=== PATIENT | female | born 1990 | race Caucasian/White ===

== ENCOUNTER 2017-09-27 10:58 | Emergency (ER) | payer MEDICAID ==
[2017-09-27 11:14] VITALS: BP 122/76
--- NOTE | 2017-09-27 11:27 | ED Physician Documentation ---
General Adult - HISTORIAN Historian: patient - HPI Stated Complaint: L lower jaw pain Chief Complaint: General Adult Onset: days ago Timing: still present Severity: moderate Further Comments: yes (Pt is a 27 yo female with dental pain in her L lower jaw. Pt has had difficulty sleeping. Pt has had pain for several weeks, but it has been worse in the past 2 days.) - ROS CONST: no problems EYES/ENT: other (dental pain) CVS/RESP: none GI/: none MS/SKIN/LYMPH: none - PAST HX Past History: asthma Surgeries/Procedures: , other (ortho surgery) Allergies/Adverse Reactions: Allergies Allergy/AdvReac Type Severity Reaction Status Date / Time amoxicillin Allergy Verified 09/27/17 11:14 Home Medications: Ambulatory Orders Medication Instructions Recorded NK [NK] 09/27/17 - SOCIAL HX Smoking History: quit less than 1 year - FAMILY HX Family History: No - VITAL SIGNS Vital Signs: Vital Signs Temp Pulse Resp BP Pulse Ox 72 17 122/76 99 09/27/17 11:10 09/27/17 11:10 09/27/17 11:10 09/27/17 11:10 - REVIEWED ASSESSMENTS Nursing Assessment Reviewed: Yes Vitals Reviewed: Yes Progress - Progress Progress: Rx Keflex 500 mg. Take one every 8 hrs for 10 days. Rx [place] (5/325). Take one or two every 4 to 6 hrs as needed for moderate to severe pain. f/u dentist (see handout of local dentists.) General Adult Physical Exam - PHYSICAL EXAM GENERAL APPEARANCE: moderate distress EENT: other (dental caries; tenderness L lower molar) RESPIRATORY: no resp distress CVS: reg rate & rhythm, heart sounds normal BACK: normal inspection SKIN: warm/dry, normal color EXTREMITIES: non-tender, normal range of motion, no evidence of injury NEURO: oriented X3, motor nml, sensation nml Discharge Clincal Impression: Pain, dental Condition: Good Disposition: 01 HOME, SELF-CARE Decision to Admit: NO Decision Time: 11:31
== END 2017-09-27 11:35 | disposition home or self-care (01) ==
LOC: ED 10:58
DX: K02.9 Dental caries, unspecified (principal)

== ENCOUNTER 2017-11-19 22:09 | Emergency (ER) | payer MEDICAID, OTHER ==
[2017-11-19] MEDS ORDERED: ONDANSETRON HCL 4 MG TAB.RAPDIS PO ONE (22:37)
[2017-11-19] MEDS ORDERED: 0.9 % SODIUM CHLORIDE 1,000 ML IV ONE (22:38)
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
[2017-11-19] MEDS ORDERED: KETOROLAC TROMETHAMINE 30 MG/1ML VIAL IVP ONE (23:23)
[2017-11-19 23:49] LABS: BASOPHILS % 0.5 (0.0-1.5); EOSINOPHILS % 4.3 % (0.0-6.8); MEAN CORPUSCULAR HEMOGLOBIN 30.3 pg (28.0-34.0); MEAN CORPUSCULAR VOLUME 89.8 fl (80.0-100.0); MONOCYTES % 3.9 % (0.0-11.0); NEUTROPHILS # 4.4 # k/uL (1.4-7.7)
[2017-11-20 00:08] LABS: eGFR (African) > 60; eGFR (Non-African) > 60
[2017-11-20] MEDS ORDERED: SULFAMETHOXAZOLE/TRIMETHOPRIM 1 EACH TABLET PO ONE (00:22)
[2017-11-20 02:38] VITALS: BP 128/82
[2017-11-20 09:39] LABS: APPEARANCE,URINE CLEAR (CLEAR); COLOR,URINE YELLOW (YELLOW); OCCULT BLOOD,URINE 2+ (NEGATIVE); PH URINE 5.5 (5.0 - 8.0); UROBILINOGEN URINE 0.2 Eu (0.2-1.0)
== END 2017-11-20 01:05 | disposition home or self-care (01) ==
LOC: ED 22:09
DX: N30.01 Acute cystitis with hematuria (principal)
CPT/HCPCS: 80053; 81002; 84703; 85025; 87086; 96365; 96375; J1885; A9270; J7030; S1016

== ENCOUNTER 2017-12-06 11:30 | Emergency (ER) | payer MEDICAID, OTHER ==
--- NOTE | 2017-12-06 12:22 | ED Physician Documentation ---
General Adult - HISTORIAN Historian: patient - HPI Stated Complaint: n/v/d Chief Complaint: General Adult Additional Information: onset 5 days ago sinus headache facial discomfort n/e/d dehydration cough prod sl colored mucoid. several people at work w/similar Timing: worse Severity: moderate - ROS CONST: recent illness, chills EYES/ENT: sore throat, nasal drainage, nasal congestion. denies: problems with vision CVS/RESP: cough. denies: shortness of breath GI/: abdominal pain (mild), vomiting, nausea, diarrhea MS/SKIN/LYMPH: other (headache facial discomnfort and ache all over) NEURO/PSYCH: headache - PAST HX Past History: asthma Surgeries/Procedures: Allergies/Adverse Reactions: Allergies Allergy/AdvReac Type Severity Reaction Status Date / Time amoxicillin Allergy Verified 12/06/17 12:13 Home Medications: Ambulatory Orders Medication Instructions Recorded Azithromycin 500 mg PO DAILY 5 Days #5 tablet 12/06/17 Ondansetron [Zofran Odt] 4 mg PO Q4H PRN #8 tab.rapdis 12/06/17 - SOCIAL HX Smoking History: non-smoker Alcohol Use: rarely Drug Use: none - FAMILY HX Family History: No - VITAL SIGNS Vital Signs: Vital Signs Temp Pulse Resp BP Pulse Ox 96.7 F L 72 16 150/96 98 12/06/17 11:45 12/06/17 11:45 12/06/17 11:45 12/06/17 11:45 12/06/17 11:45 - REVIEWED ASSESSMENTS Nursing Assessment Reviewed: Yes Vitals Reviewed: Yes ED Results Lab/Radiology - Orders Orders: ED Orders Category Date Time Status Place IV Lock 1T Care 12/06/17 12:17 Ordered Azithromycin [Zithromax] Med 12/06/17 12:18 Once 500 mg PO NOW ONE NORMAL SALINE @ 1000 MLS/HR ( 1000ml BOLUS) Med 12/06/17 12:17 Ordered 0.9 % Sodium Chloride [Normal Saline] 1,000 ml IV Q1H Ondansetron HCl/Pf [Zofran 4 mg/2 ml] Med 12/06/17 12:17 Once 4 mg IVP NOW ONE General Adult Physical Exam - PHYSICAL EXAM GENERAL APPEARANCE: moderate distress EENT: eye inspection normal, DOLORES, no nystagmus, TM's nml, pharyngeal erythema ( mild), other (percussion all sinuses mod positive especially mastoid). No: no signs of dehydration, scleral icterus, pale conjunctivae, EOM palsy NECK: normal inspection, supple RESPIRATORY: no resp distress, breath sounds normal CVS: reg rate & rhythm, heart sounds normal ABDOMEN: soft. No: non-tender (slight genl tenderness) SKIN: warm/dry, normal color. No: cyanosis, diaphoresis, jaundice, mottled EXTREMITIES: non-tender, normal range of motion, no evidence of injury (multi tatoos) NEURO: oriented X3, motor nml, sensation nml, mood/affect nml, depressed mood/ affect. No: facial droop, sensory/motor deficit Discharge Clincal Impression: sinusitis, viral gastritis - n/e/d Prescriptions: Azithromycin 500 mg PO DAILY 5 Days #5 tablet Ondansetron [Zofran Odt] 4 mg PO Q4H PRN #8 tab.rapdis PRN Reason: Nausea / Vomiting Referrals: Primary Doctor,No [Primary Care Provider] - 2 Days Comments: home meds ORT of 2/3 gatoraid 1/3 water Condition: Good Disposition: 01 HOME, SELF-CARE Decision to Admit: NO Decision Time: 14:18
[2017-12-06] MEDS: AZITHROMYCIN 250 MG TABLET PO ONE (12:35)
[2017-12-06] MEDS: 0.9 % SODIUM CHLORIDE 1,000 ML IV ONE (12:35)
[2017-12-06] MEDS: ONDANSETRON HCL/PF 4 MG/ 2ML VIAL IVP ONE (12:35)
[2017-12-06 12:55] VITALS: BP 150/96
== END 2017-12-06 14:16 | disposition home or self-care (01) ==
LOC: ED 11:30
DX: J32.8 Other chronic sinusitis (principal); K52.9 Noninfective gastroenteritis and colitis, unspecified
CPT/HCPCS: J2405; J7030; 96365; 96375; S1016

== ENCOUNTER 2017-12-10 16:48 | Emergency (ER) | payer MEDICAID, OTHER ==
[2017-12-10 16:59] VITALS: BP 125/83
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
== END 2017-12-10 17:25 | disposition home or self-care (01) ==
LOC: ED 16:48
DX: L30.9 Dermatitis, unspecified (principal)

== ENCOUNTER 2017-12-16 17:54 | Emergency (ER) | payer MEDICAID, OTHER ==
[2017-12-16 18:15] VITALS: BP 138/98
[2017-12-16] MEDS ORDERED: KETOROLAC TROMETHAMINE 60 MG/2 ML VIAL IM ONE (18:33)
[2017-12-16] MEDS ORDERED: CYCLOBENZAPRINE HCL 5 MG TABLET PO ONE (18:33)
--- NOTE | 2017-12-16 18:39 | ED Physician Documentation ---
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 Points to lumbar paraspinous areas, pain worse R>L. At times, feels like the muscles in her back twitch and R leg tingles or becomes numb. Took 200 mg ibuprofen this am at work which did not help. Has appled cold to the area once. Denies loss bowel or bladder control, paralysis, weakness. No other modifying factors or associated signs. HX back pain, but not for months. No other modifying factors or associated signs. - ROS CONST: no problems NEURO/PSYCH: denies: difficulty walking - PAST HX Past History: other Allergies/Adverse Reactions: Allergies Allergy/AdvReac Type Severity Reaction Status Date / Time amoxicillin Allergy Verified 12/16/17 18:07 Home Medications: Ambulatory Orders Medication Instructions Recorded NK [NK] 12/16/17 - SOCIAL HX Smoking History: non-smoker - FAMILY HX Family History: No - VITAL SIGNS Vital Signs: Vital Signs Temp Pulse Resp BP Pulse Ox 98.4 F 73 18 138/98 98 12/16/17 18:08 12/16/17 18:08 12/16/17 18:08 12/16/17 18:08 12/16/17 18:08 - REVIEWED ASSESSMENTS Nursing Assessment Reviewed: Yes Vitals Reviewed: Yes ED Results Lab/Radiology - Orders Orders: ED Orders Category Date Time Status Cyclobenzaprine HCl [Flexeril] Med 12/16/17 18:33 Once 10 mg PO NOW ONE Ketorolac Tromethamine [Toradol] Med 12/16/17 18:33 Once 60 mg IM NOW ONE General Adult Physical Exam - PHYSICAL EXAM GENERAL APPEARANCE: mild distress EENT: eye inspection normal, ENT inspection normal NECK: normal inspection, supple RESPIRATORY: no resp distress, breath sounds normal CVS: reg rate & rhythm, heart sounds normal BACK: normal inspection, no CVA tenderness, other (lumbar paraspinal muscle spasm R>L, tender to palpation R>L) SKIN: warm/dry, normal color EXTREMITIES: normal range of motion, no evidence of injury, other (SLR positive on right at 80 degrees; negative on left ) NEURO: CN's nml as tested, motor nml, sensation nml, other (reflexes 2+) Discharge Clincal Impression: Lumbar strain Qualifiers: Encounter type: initial encounter Qualified Code(s): S39.012A - Strain of muscle, fascia and tendon of lower back, initial encounter Referrals: Primary Doctor,No [Primary Care Provider] - 2 Days Additional Instructions: Ibuprofen 600 mg with food, every 8 hours for a week. You could also take 1000 mg acetaminophen every 8 hours if needed for discomfort. Ice to the sore muscles for 30 minutes of each hour you are awake. Condition: Good Disposition: 01 HOME, SELF-CARE Decision to Admit: NO Decision Time: 18:50
== END 2017-12-16 19:15 | disposition home or self-care (01) ==
LOC: ED 17:54
DX: S39.012A Strain of muscle, fascia and tendon of lower back, initial encounter (principal); X50.0XXA Overexertion from strenuous movement or load, initial encounter; Y92.9 Unspecified place or not applicable; Y93.F2 Activity, caregiving, lifting; Y99.9 Unspecified external cause status
CPT/HCPCS: 96372; J1885

== ENCOUNTER 2017-12-31 00:42 | Emergency (ER) | payer MEDICAID ==
--- NOTE | 2017-12-31 00:57 | ED Physician Documentation ---
General Adult - HISTORIAN Historian: patient - HPI Stated Complaint: history of UTI, burning with urination Chief Complaint: Female Urogenital Problems Onset: days ago (2) Timing: still present Severity: mild Further Comments: yes (She reports she has frequent UTI's. She started with burning she reports she gets sick very easily she does not want to wait to see PCP. NO fever. She has burning and urgency. NO OTC meds tried. No vaginal discharge. Mild lower pelvic pain) Last known Well Code/Unknown Code: Unknown - ROS CONST: denies: fever GI/: abdominal pain, problems urinating. denies: vomiting, nausea, diarrhea MS/SKIN/LYMPH: denies: rash NEURO/PSYCH: denies: headache, dizziness - PAST HX Past History: other (chronic back pain ) Immunizations: UTD Allergies/Adverse Reactions: Allergies Allergy/AdvReac Type Severity Reaction Status Date / Time amoxicillin Allergy Intermediate Rash Verified 12/31/17 01:12 Home Medications: Ambulatory Orders Medication Instructions Recorded NK 12/31/17 - SOCIAL HX Smoking History: non-smoker Alcohol Use: none Drug Use: none - FAMILY HX Family History: No - VITAL SIGNS Vital Signs: Vital Signs Temp Pulse Resp BP Pulse Ox 138/98 12/16/17 18:08 - REVIEWED ASSESSMENTS Nursing Assessment Reviewed: Yes Vitals Reviewed: Yes General Adult Physical Exam - PHYSICAL EXAM GENERAL APPEARANCE: no distress EENT: eye inspection normal NECK: normal inspection RESPIRATORY: no resp distress, chest non-tender, breath sounds normal CVS: reg rate & rhythm, heart sounds normal, equal pulses ABDOMEN: soft, normal bowel sounds, no distension, non-tender, other (mild bladder tenderness ) BACK: normal inspection, no CVA tenderness SKIN: warm/dry, normal color EXTREMITIES: non-tender NEURO: oriented X3 Discharge Clincal Impression: Urinary tract infection Qualifiers: Urinary tract infection type: site unspecified Hematuria presence: with hematuria Qualified Code(s): N39.0 - Urinary tract infection, site not specified Referrals: Primary Doctor,No [Primary Care Provider] - 2 Days Comments: 1. Macrobid 100 mg Twice per day x 10 days 2. Zofran 4 mg take 1 by mouth every 8 hours as needed for nausea 3. Increase fluids 4. Rest 5. Follow up with PCP in 7 days 6. return to ER for any concerns Condition: Stable Disposition: 01 HOME, SELF-CARE Decision to Admit: NO Date of Decison to Admit: 12/31/17 Decision Time: :22
[2017-12-31 01:09] VITALS: BP 131/88
[2017-12-31] MEDS: NITROFURANTOIN 100 MG CAPSULE PO ONE (01:23)
[2017-12-31] MEDS: ONDANSETRON HCL 4 MG TAB.RAPDIS PO ONE (01:23)
[2017-12-31 09:16] LABS: OCCULT BLOOD,URINE 3+ (NEGATIVE)
[2017-12-31 09:18] LABS: URINE HCG NEGATIVE (NEGATIVE)
== END 2017-12-31 01:25 | disposition home or self-care (01) ==
LOC: ED 00:42
DX: N39.0 Urinary tract infection, site not specified (principal)
CPT/HCPCS: 81002; 81025; 87086; A9270

== ENCOUNTER 2018-02-04 19:47 | Emergency (ER) | payer MEDICAID, OTHER ==
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
[2018-02-04] MEDS: DIAZEPAM 5 MG TABLET PO ONE (21:13)
[2018-02-04 21:36] VITALS: BP 119/76
[2018-02-05 06:12] LABS: APPEARANCE,URINE CLEAR (CLEAR); COLOR,URINE YELLOW (YELLOW); OCCULT BLOOD,URINE NEGATIVE (NEGATIVE)
[2018-02-05 06:13] LABS: URINE HCG NEGATIVE (NEGATIVE)
== END 2018-02-04 21:17 | disposition home or self-care (01) ==
LOC: ED 19:47
DX: M54.5 Low back pain (principal); M62.830 Muscle spasm of back
CPT/HCPCS: 81002; 81025

== ENCOUNTER 2018-02-18 21:40 | Emergency (ER) | payer MEDICAID, OTHER ==
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
[2018-02-18 22:04] VITALS: BP 143/67
[2018-02-18] MEDS ORDERED: KETOROLAC TROMETHAMINE 60 MG/2 ML VIAL IM ONE (22:16)
[2018-02-18] MEDS ORDERED: DIAZEPAM 5 MG TABLET PO ONE (22:17)
== END 2018-02-18 22:35 | disposition home or self-care (01) ==
LOC: ED 21:40
DX: M54.5 Low back pain (principal); G89.29 Other chronic pain
CPT/HCPCS: 81025; 96372; J1885

== ENCOUNTER 2018-02-27 09:50 | Outpatient (CLI) | payer MEDICAID, OTHER ==
[2018-02-27] MEDS ORDERED: SALINE FLUSH 10 ML DISP.SYRIN IVF ONE (11:20)
[2018-02-27] MEDS ORDERED: TRIAMCINOLONE ACETONID 40MG/ML VIAL ONE (11:20)
[2018-02-27] MEDS ORDERED: Lidocaine 1% 5ml(IM or SUTURE)(PAIN CLINIC) ONE (11:20)
[2018-02-27] MEDS ORDERED: PROPOFOL 200 MG/20 ML VIAL IV ONE (11:20)
[2018-02-27] MEDS ORDERED: NORMAL SALINE 1,000 ML IV.SOLN IV ONE (11:20)
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
--- NOTE | 2018-02-27 12:27 | LESI WITH FLUORO ---
PREOPERATIVE DIAGNOSIS: Right lower extremity radiculitis. ANESTHESIA: Monitored anesthesia care. OPERATIVE PROCEDURE: Right L5-S1 epidural steroid injection with fluoroscopic guidance. DESCRIPTION OF PROCEDURE: The risks and benefits were discussed with the patient including the risk of infection, bleeding, nerve injury, and headache, as well as the risks of steroid exposure causing hyperglycemia, hypertension, osteoporosis, or increased infectious risks. The patient understood these risks and agreed to proceed. Consent was obtained prior to the procedure. The patient was positioned prone on the fluoroscopic procedure table. Sterile prep and drape were applied. Under AP and lateral fluoroscopic imaging, the L5- S1 interspace was identified. Omnipaque 240 myelogram dye were injected through the epidural needle. The distribution of the dye was noted to be within the desired distribution within the lumbar epidural space. The medication was injected into the epidural space. The stylet was replaced in the needle and the needle was removed from the back. The patient tolerated the procedure well. The back was cleaned and a bandage was applied over the injection site. The patient was monitored for 20 minutes following the procedure. during this time the vital signs remained stable and the patient experienced no adverse sequelae. The patient was discharged in good condition. ASSESSMENT: Lumbar radiculitis. PLAN: Right L5-S1 epidural steroid injection with fluoroscopic guidance. FOLLOWUP: Return to clinic if problems develop or worsen. cc: SHERLY Up
== END 2018-02-27 09:52 ==
LOC: OUT 09:50
PROVIDERS: ATTEND Anesthesiology Pain Medicine
DX: M54.17 Radiculopathy, lumbosacral region (principal)
CPT/HCPCS: 81025; J2704; J3301; J7030; Q9966; 62323; 99213; S1016

== ENCOUNTER 2018-04-03 07:42 | Outpatient (CLI) | payer MEDICAID, OTHER ==
[2018-04-03] MEDS ORDERED: SALINE FLUSH 10 ML DISP.SYRIN IVF ONE (09:00)
[2018-04-03] MEDS ORDERED: TRIAMCINOLONE ACETONID 40MG/ML VIAL ONE (09:00)
[2018-04-03] MEDS ORDERED: LIDOCAINE HCL 2% PF 100MG/5ML VIAL IJ ONE (09:00)
[2018-04-03] MEDS ORDERED: 0.9 % SODIUM CHLORIDE PF 10 ML VIAL IJ ONE (09:00)
--- NOTE | 2018-04-09 10:31 | LESI WITH FLUORO ---
SUBJECTIVE: Ms. Dia follows up with me today with right lower extremity radiculitis for a right L5-S1 epidural steroid injection. I reviewed her MRI. She has some mild degenerative disc disease at L4-L5 and L5-S1 without jorge spinal or neural foraminal stenosis. OPERATIVE PROCEDURE: Right L5-[id number] steroid injection with fluoroscopic guidance. DESCRIPTION OF PROCEDURE: The risks and benefits were discussed with the patient including the risk of infection, bleeding, nerve injury, and headache, as well as the risks of steroid exposure causing hyperglycemia, hypertension, osteoporosis, or increased infectious risks. The patient understood these risks and agreed to proceed. Consent was obtained prior to the procedure. The patient was placed in the prone position on the fluoroscopy table with a pillow underneath the abdomen to afford anterior flexion of the lumbar spine. The low back was cleaned and a sterile drape was applied. A Tuohy epidural needle was advanced with normal saline loss of resistance technique and direct fluoroscopic guidance with a right paramedian approach at the L5-S1 level. On obtaining loss of resistance to normal saline, it was verified that there was no aspiration of CSF or blood. Furthermore, the needle tip location was verified with lateral and AP fluoroscopic views. Omnipaque 240 myelogram dye was injected through the epidural needle. The distribution of the dye was noted to be within the desired distribution within the lumbar epidural space. The medication was injected into the epidural space. The stylet was replaced in the needle and the needle was removed from the back. The patient tolerated the procedure well. The back was cleaned and a bandage was applied over the injection site. The patient was monitored for 20 minutes following the procedure. during this time the vital signs remained stable and the patient experienced no adverse sequelae. The patient was discharged in good condition. ASSESSMENT: Right lumbar radiculitis with previously good result from an epidural injection. PLAN: 1. Right L5-[id number] steroid injection with fluoroscopic guidance today. 2. Consider instituting physical therapy for home exercises. 3. Consider a nutritional consultation for weight reduction. I have discussed this with the patient today. FOLLOWUP: Return to clinic if problems develop or worsen. cc: SHERLY Up
== END 2018-04-03 07:43 ==
LOC: OUT 07:42
PROVIDERS: ATTEND Anesthesiology Pain Medicine
DX: M54.16 Radiculopathy, lumbar region (principal)
CPT/HCPCS: 62323; J2001; J3301; Q9966

== ENCOUNTER 2018-05-17 12:33 | Emergency (ER) | payer MEDICAID, OTHER ==
--- NOTE | 2018-05-17 12:42 | ED Physician Documentation ---
General Adult - HISTORIAN Historian: patient - HPI Stated Complaint: rash on abdomen Chief Complaint: Skin Rash Further Comments: yes (she notes a rash on her abdomen that started around 2 weeks ago. She tried benadryl once with no help in symptoms. She states the area does itch. No other rash. she is using a scented soap and lotion. She did use some medicated lotion from the long term x 1 and that did help some for a while. No fever. No other contacts) Last known Well Code/Unknown Code: Unknown - ROS CONST: no problems EYES/ENT: denies: sore throat, nasal congestion CVS/RESP: denies: cough GI/: denies: vomiting, nausea, diarrhea MS/SKIN/LYMPH: rash - PAST HX Past History: none Immunizations: UTD Allergies/Adverse Reactions: Allergies Allergy/AdvReac Type Severity Reaction Status Date / Time amoxicillin Allergy Intermediate Rash Verified 02/18/18 22:04 - SOCIAL HX Smoking History: non-smoker Alcohol Use: none Drug Use: none - FAMILY HX Family History: No - VITAL SIGNS Vital Signs: Vital Signs Temp Pulse Resp BP Pulse Ox 143/67 02/19/18 03:25 - REVIEWED ASSESSMENTS Nursing Assessment Reviewed: Yes Vitals Reviewed: Yes General Adult Physical Exam - PHYSICAL EXAM GENERAL APPEARANCE: no distress EENT: eye inspection normal NECK: normal inspection RESPIRATORY: no resp distress, chest non-tender, breath sounds normal CVS: reg rate & rhythm, heart sounds normal ABDOMEN: soft, no distension BACK: normal inspection SKIN: warm/dry, other (small patch of dry skin on abdomen with crusting ) EXTREMITIES: non-tender NEURO: oriented X3 Discharge Clincal Impression: Rash and nonspecific skin eruption Referrals: Gloria Head PA [Primary Care Provider] - 2 Days Comments: 1. Use a scoop not a pump lotion 2. No scented soaps or lotion - use dove 3. Keep area open when possible 4. Take Benadryl as directed on box or bottle at night to help prevent itch 5. Follow up with PCP in 2-4 days if no improvement 6. Return to ER for any concerns Condition: Stable Disposition: 01 HOME, SELF-CARE Decision to Admit: NO Date of Decison to Admit: 05/17/18 Decision Time: 12:53
[2018-05-17 12:50] VITALS: BP 149/83
== END 2018-05-17 12:57 | disposition home or self-care (01) ==
LOC: ED 12:33
DX: R21 Rash and other nonspecific skin eruption (principal)
CPT/HCPCS: 99281; 99282